=== PATIENT | female | born 1990 | race Caucasian/White ===

== ENCOUNTER → 2018-01-25 | Outpatient (CLI) | payer BC ==
[~2018-01-25] MED LIST: CETI10CA8 PO; FEXO1TAB63 PO; LEVO125T77 PO; LEVO150T72 PO; MONT10TA PO; PREN-127 PO
[2018-01-25 12:20] LABS: PLATELET COUNT, AUTOMATED 271 K/uL (150-450)
== END ==
LOC: LAB 10:55
PROVIDERS: ATTEND Obstetrics & Gynecology
DX: Z34.91 Encounter for supervision of normal pregnancy, unspecified, first trimester (principal); E03.9 Hypothyroidism, unspecified
CPT/HCPCS: 36415; 81001; 84443; 85025; 86592; 86703; 86762; 86850; 86900; 86901; 87088; 87340

== ENCOUNTER → 2018-03-05 | Outpatient (CLI) | payer OTHER | LOC: LAB 11:51 | PROVIDERS: ATTEND Obstetrics & Gynecology | DX: E03.9 Hypothyroidism, unspecified (principal) | CPT/HCPCS: 36415; 84443 ==

== ENCOUNTER → 2018-04-27 | Outpatient (CLI) | payer OTHER | LOC: LAB 07:58 | PROVIDERS: ATTEND Obstetrics & Gynecology | DX: O99.282 Endocrine, nutritional and metabolic diseases complicating pregnancy, second trimester (principal); E03.9 Hypothyroidism, unspecified; Z34.02 Encounter for supervision of normal first pregnancy, second trimester | CPT/HCPCS: 36415; 81511; 84443 ==

== ENCOUNTER → 2018-05-06 | Outpatient (CLI) | payer OTHER ==
--- NOTE | 2018-05-06 14:22 | RADIOLOGY IMAGING REPORT ---
[place] [facility] [place] Melodie Gavin : 1990 MR: [id number] V: [id number] EXAM DATE: ORDERING PHYSICIAN: LUZ BUCKLEY TECHNOLOGIST: Location: [facility] Patient: Melodie Gavin : 1990 Visit/Account:[id number] Date of Sevice: 05/06/2018 OB Ultrasound > 14 weeks with anatomic evaluation HISTORY: Anatomic survey COMPARISON STUDIES: None available FINDINGS: 3-D imaging was performed by the technologist according to protocols developed by the radiologists an d the facility radiology staff. Refractory Technician images are stored on PACS. Intrauterine gestations: one presentation: Variable heart rate: 142 bpm Amniotic fluid index: 16.0 cm Largest amniotic fluid pocket 5.1 cm Placenta: Anterior without previa Uterus: gravid, otherwise normal Maternal adnexa: Unremarkable Cervix: long and closed Gestational Parameters: BPD: 5.0 cm 21 weeks, 3 days, 84th percentile HC: 17.8 cm 20 weeks, 3 days, 36 percentile AC: 15.2 cm 20 weeks, 3 days, 43rd percentile FL: 3.5 cm 21 weeks, 1 day, 64th percentile Average ultrasound age (AUA): 20 weeks, 6 days PEDRO: 09/17/2018 based on AUA Estimated weight (EFW): 371 g Anatomic Survey: Intracranial structures, 4-chamber heart, stomach, kidneys, urinary bladder, spine, 3-vessel cord and cord insertion are unremarkable. Two upper and two lower extremities visualized. IMPRESSION: 1. Single live intrauterine gestation; estimated ultrasound age 20 weeks, 6 days. 2. Unremarkable anatomic survey Report Dictated By: Tomas Chen DO at 05/06/2018 2:10 PM Report E-Signed By: Tomas Chen DO at 05/06/2018 2:18 PM WSN:[email or web address]
== END ==
LOC: US 11:04
PROVIDERS: ATTEND Obstetrics & Gynecology
DX: Z02.9 Encounter for administrative examinations, unspecified (principal)

== ENCOUNTER → 2018-06-24 | Outpatient (CLI) | payer OTHER ==
[~2018-06-24] MED LIST changes: +DIPH0.5D12 IM
== END ==
LOC: LAB 07:49
PROVIDERS: ATTEND Obstetrics & Gynecology
DX: O99.282 Endocrine, nutritional and metabolic diseases complicating pregnancy, second trimester (principal); E03.9 Hypothyroidism, unspecified
CPT/HCPCS: 36415; 82950; 84443; 85027

== ENCOUNTER → 2018-08-23 | Outpatient (CLI) | payer OTHER ==
[~2018-08-23] MED LIST changes: -DIPH0.5D12 IM; +DIPH0.5S2 IM
--- NOTE | 2018-08-23 14:21 | RADIOLOGY IMAGING REPORT ---
FACILITY: [facility] [place] PATIENT NAME: Melodie Gavin : 1990 MR: [id number] V: [id number] EXAM DATE: ORDERING PHYSICIAN: LUZ BUCKLEY TECHNOLOGIST: Location: [facility] [place] Patient: Melodie Gavin : 1990 Visit/Account:[id number] Date of Sevice: 08/23/2018 EXAMINATION: Ultrasound transabdominal OB > 14 weeks with anatomic evaluation HISTORY: Size greater than dates COMPARISON: May 06, 2018 TECHNIQUE: Transabdominal imaging was performed for assessment of the fetus and maternal pelvic structures. T ransvaginal imaging was not performed. FINDINGS: Placenta: Anterior without previa. Uterus: Gravid, otherwise normal Cervix: Not evaluated Maternal Ovaries: Not visualized. Maternal and other adnexa findings: Not evaluated Intrauterine gestations: One. presentation: Cephalic heart rate: Normal at 126 bpm Amniotic fluid index: 12.94 cm Largest amniotic fluid pocket: 4.49 cm Gestational Parameters: BPD: 9.08 cm 36 weeks/ six days, 80% HC: 32.58 cm 37 weeks/ zero days, 42% AC: 32.74 cm 36 weeks/ five days, 77% FL: 7.3 cm 37 weeks/ three days, 79% Average ultrasound age (AUA): 37 weeks/zero days, PEDRO 09/13/2018 Estimated gestational age by PEDRO: 36 weeks/zero days, PEDRO 09/20/2018 Estimated weight (EFW): 3057 g grams +/- 446 grams EFW for PEDRO: 75 percentile Anatomic Survey: Anatomic survey not performed IMPRESSION: Single viable fetus in cephalic presentation with an estimated gestational age by measur ements of 37 weeks and zero days. Estimated gestational age by LMP is 36 weeks and zero days. Estimated weight is 3057 g equivalent to the 75th percentile Report Dictated By: Jayde Valladares MD at 08/23/2018 1:00 PM Report E-Signed By: Jayde Valladares MD at 08/23/2018 2:16 PM WSN:[email or web address]
== END ==
LOC: RAD 11:26
PROVIDERS: ATTEND Obstetrics & Gynecology
DX: Z02.9 Encounter for administrative examinations, unspecified (principal)

== ENCOUNTER → 2018-08-24 | Outpatient (CLI) | payer OTHER | LOC: LAB 11:38 | PROVIDERS: ATTEND Obstetrics & Gynecology | DX: Z36.85 Encounter for antenatal screening for Streptococcus B (principal) | CPT/HCPCS: 87081 ==

== ENCOUNTER 2018-09-15 05:33 | Inpatient (IN) | payer OTHER ==
[2018-09-15] MEDS ORDERED: OXYTOCIN 30 UNIT/NS 500 ML 500 ML IV PRN ×2 (05:37→09:06)
[2018-09-15] MEDS ORDERED: FAMOTIDINE(*) 20MG/50ML PREMIX 50 ML IVPB PRN (05:37)
[2018-09-15] MEDS ORDERED: METOCLOPRAMIDE 10 MG/2 ML SDV IVP PRN (05:40)
[2018-09-15] MEDS ORDERED: LIDOCAINE/SOD BICARB 8.4% SYR SC PRN (05:40)
[2018-09-15] MEDS ORDERED: fentaNYL CITR 100 MCG/2 ML AMP IVP PRN (05:40)
[2018-09-15] MEDS ORDERED: FLUSH 10 ML SYR IVP PRN (05:40)
[2018-09-15] MEDS ORDERED: LIDOCAINE 1% LOCAL 300 MG/30ML INJ PRN (05:40)
[2018-09-15 06:15] VITALS: BP 118/68
[2018-09-15 06:58] LABS: PLATELET COUNT, AUTOMATED 184 K/uL (150-450)
[2018-09-15] MEDS: LR(*) 1000 ML BAG 1,000 ML IV PRN ×3 (07:08→15:09)
--- NOTE | 2018-09-15 08:35 | History & Physical ---
History of Present Illness Age of Patient: 28 : 1 Para or TPAL: 0 EDC per LMP: Sep 22, 2018 Estimated Gestational Age: 39 History of Present Illness Pt here for elective IOL. History Patient's Blood Type: A Positive Rubella Status: Immune Group B Strep Screen: Negative Allergies: Coded Allergies: grass pollen (Verified Allergy, Unknown, 01/25/18) mold (Verified Allergy, Unknown, 01/25/18) tree and shrub pollen (Verified Allergy, Unknown, 01/25/18) Family History: FH: diabetes mellitus paternal grandmother FH: lupus paternal grandmother Med Rec Home Meds Active Scripts Levothyroxine Sodium (SYNTHROID) 150 Mcg Tablet, 150 MCG PO QDAY, #30 TAB 6 Refills Prov:LUZ BUCKLEY MD 05/27/18 Reported Medications Cetirizine Hcl (ZYRTEC) 10 Mg Capsule, 10 MG PO DIRECTED PRN for allergy shot, CAPSULE 01/25/18 Fexofenadine Hcl/Pseudoephedr (CARLENE-D 24 HOUR TABLET) 1 Each Tabsr, 1 TAB PO DIRECTED PRN for allergy shots 01/25/18 Montelukast Sodium (SINGULAIR) 10 Mg Tablet, 1 TAB PO DAILY, TAB 01/25/18 Vits W-Ca,Fe,Fa(<1MG) ( VITAMINS) 1 Each Tablet, 1 EACH PO DAILY, TAB 01/25/18 Exam General Exam Vital Signs Vital Signs Date Time Temp Pulse Resp B/P (MAP) Pulse Ox O2 Delivery O2 Flow Rate FiO2 09/15/18 06:15 98.5 67 18 118/68 (85) 98 Room Air General Apperance: Alert/Awake/No Acute Distress Neuro: No Gross deficits Eyes: Normal Extraocular Movement & Vison ENT: Normal Respiratory: No Respiratory Distress Extremities: No Cyanosis,Clubbing or Edema Psychological: Alert & Oriented X3, Appropriate Mood & Affect Vaginal Discharge/Fluid?: Clear Fluid, Moderate Amount, Other (AROM peformed at [address] 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
[2018-09-15] MEDS ORDERED: LIDO/EPI 2% MPF 1:200,000 20ML EPI PRN (09:05)
[2018-09-15] MEDS ORDERED: BUPIVACAINE 0.25% MPF INJ EPI PRN (09:05)
[2018-09-15] MEDS ORDERED: FENTANYL/ROPIVACAINE 100 ML BAG EPI PRN (09:05)
[2018-09-15] MEDS ORDERED: BUPIVACAINE 0.5% INJ 30ML VIAL EPI PRN (09:05)
[2018-09-15] MEDS ORDERED: LIDOCAINE/PF 2% 200MG/10ML AMP 200 MG/10 ML AMPUL EPI PRN (09:05)
[2018-09-15] MEDS ORDERED: fentaNYL CITR 100 MCG/2 ML AMP IT PRN (09:05)
--- NOTE | 2018-09-15 13:45 | Anesthesia OB Pre-Anes Eval ---
History of Present Illness Anesthesia Start Date: Sep 15, 2018 Anesthesia Start Time: 12:51 OB Anesthesia Diagnosis: induction - elective EDC: Sep 22, 2018 : 1 Para: 1 Vital Signs: Vital Signs Date Time Temp Pulse Resp B/P (MAP) Pulse Ox O2 Delivery O2 Flow Rate FiO2 09/15/18 06:15 98.5 67 18 118/68 (85) 98 Room Air Pain Ratin Result Diagram: 09/15/18 0628 Past Medical History Medical History: other (hypothyroidism) Surgical History: noncontributory Attended Childbirth Classes?: No Hx Anesthesia Reactions: No Hx Family Anesthesia Reaction: No Current Medications: pitocin Home Meds Active Scripts Levothyroxine Sodium (SYNTHROID) 150 Mcg Tablet, 150 MCG PO QDAY, #30 TAB 6 Ref ills Prov:LUZ BUCKLEY MD 05/27/18 Reported Medications Cetirizine Hcl (ZYRTEC) 10 Mg Capsule, 10 MG PO DIRECTED PRN for allergy shot, CAPSULE 01/25/18 Fexofenadine Hcl/Pseudoephedr (CARLENE-D 24 HOUR TABLET) 1 Each Tabsr, 1 TAB PO DIRECTED PRN for allergy shots 01/25/18 Montelukast Sodium (SINGULAIR) 10 Mg Tablet, 1 TAB PO DAILY, TAB 01/25/18 Vits W-Ca,Fe,Fa(<1MG) ( VITAMINS) 1 Each Tablet, 1 EACH PO DAILY, TAB 01/25/18 Allergies: Coded Allergies: grass pollen (Verified Allergy, Unknown, 01/25/18) mold (Verified Allergy, Unknown, 01/25/18) tree and shrub pollen (Verified Allergy, Unknown, 01/25/18) Anesthesia OB ROS Neurological: No migraines/headaches, No seizures, No neuropathy, No other ENT: Denies Tooth caps, Denies Loose teeth, Denies Chipped teeth, Denies Dentures, Denies Bridges, Denies Retainers, Denies Veneers, Denies Implants, Denies Tongue ring, Denies Other Pulmonary: No asthma, No smoker (pks/day/yrs), No other Airway Class: ll Cardiovascular ROS: No edema, No arrhythmia, No other GI ROS: clear liquids ROS: No Herpes, No STD(s), No Liver Disease, No Renal Disease, No Other Endocrine ROS: No diabetes, No gestational diabetes, No thyroid disorder, No other Musculoskeletal ROS: No low back pain, No low back injury, No scoliosis, No other ASA Classification: 2 Assessment and Plan Anesthesia Plan: IAN HOLGUIN CRNA Sep 15, 2018 13:45
--- NOTE | 2018-09-15 13:47 | Procedure Note ---
Anesthetic Placement Note Anesthesia Plan: LEB (dural puncture technique) Permit for Anesthesia Signed: Yes Anesthesia Technique: Patient Sitting Anesthesia Prep: Chlorhexidine Interspace: L 3-4 Local Anesthetic: 1% Lidocaine, 25 Gauge Needle Amount Local - cc's: 3 Anesthesia Needle: 17g Touhy/Schliff Anesthesia Attempts: 1 Loss of Resistance: Normal Saline Depth of ELISA (cm): 5 Epidural Needle Placement: No CSF, No Blood, No Parasthesia Intrathecal Needle: 27 Gauge Pencan Cerebral Spinal Fluid: Yes, Clear Catheter Insertion (cm): 5 Catheter Type: Araiza - Spring Wound Epidural Dressing: Tegaderm, Tape Anesthesia Tray: Lot Number ([id number]), Expiration Date (11/21/2019), Reference Number ([id number]) Anesthesia Medications: Epidural Test Dose: 1.5 Lido/Epi (1:200,000), Dose - mL (5 mL incrementally), Time (1308), Negative Epidural Loading Dose: 0.2% Ropivicaine, With Fentanyl 2mcg/ml, Dose - ml (6), Time (1316), Other (fentanyl bolus via epidural 100mcg at 1312) Epidural Infusion: 0.2% Ropivicaine, With Fentanyl 2mcg/ml, Start Time: (1316) Epidural Pump Setting: Bolus Dose - mL (5), Lockout - Minutes (20), Maintenance Rate - mL/hr (8), Maximum per Hour - mL (23) Complications: None IAN ALEX CRNA Sep 15, 2018 13:47
--- NOTE | 2018-09-15 14:02 | Labor Progress Note ---
Labor Subjective Progress Notes Subjective called to pts room to evaluate FHT strip Feeling Movement?: Yes Labor Pain: Comfortable Labor Objective Vital Signs Vital Signs Date Time Temp Pulse Resp B/P (MAP) Pulse Ox O2 Delivery O2 Flow Rate FiO2 09/15/18 06:15 98.5 67 18 118/68 (85) 98 Room Air Vaginal Discharge/Fluid?: Bloody Show Cervical Dialation: 6.5 Cervical Effacement (%): 90 Cervical Consistency: Moderate Cervical Position: Mid Station: -1 Presentation: Vertex Uterine Contraction Strength: Strong UC Resting Tone: Soft Fetus Heart Tone Variabilty: Moderate FHT Accelerations: Absent FHT Decelerations: Late (intermittent late decels present, pit at 18 mu ) FHT Category: II General Exam General Appearance: Alert/Awake/No Acute Distress Respiratory: No Respiratory Distress Abdomen: Gravid - Non-Tender Psychological: Alert & Oriented X3, Appropriate Mood & Affect Other Result Diagram: 09/15/18 0628 Assessment and Plan DONOR RECRUITMENT MANAGER Assessment: Other (RN instructed to decrease pitocin to 9 mu, will observe strip. If late decels persist will stop pitocin ) RAJENDRA MOLINA DO Sep 15, 2018 14:02
--- NOTE | 2018-09-15 14:22 | Anesthesia Progress Note ---
Progress/Maintenance Anesthesia Note Date: Sep 15, 2018 Anesthesia Note Time: 14:15 Pain Intensity: 0 Pump: On Pump Rate (ML/HR): 8 Motor Level: Bending Knees-Bilateral Assessment and Plan Anesthesia Plan: IAN HOLGUIN CRNA Sep 15, 2018 14:22
[2018-09-15] MEDS ORDERED: INFLUENZA VIRUS VAC 0.5ML SYR IM ONLY ONE (18:00)
[2018-09-15] MEDS ORDERED: HYDROCORTISONE 2.5% CR 30GM TB PR PRN (18:00)
[2018-09-15] MEDS ORDERED: MEASLES,MUMP,RUBELLA VAC 0.5ML SUBQ ONE (18:00)
[2018-09-15] MEDS ORDERED: MAGNESIUM HYDROXIDE* 30ML UDCP PO PRN (18:00)
[2018-09-15] MEDS ORDERED: ACETAMINOPHEN 325 MG TAB PO PRN (18:00)
[2018-09-15] MEDS ORDERED: GLYCERIN/WITCH HAZEL LEAF 1 PK TP PRN (18:00)
[2018-09-15] MEDS ORDERED: DIPHTH/TETANUS/ACEL. PERTUSSIS IM ONLY ONE (18:00)
[2018-09-15] MEDS ORDERED: LANOLIN OINT 7 GM TUBE TP PRN (18:00)
[2018-09-15] MEDS ORDERED: BENZOCAINE 20% 60 ML BTL TP PRN (18:00)
--- NOTE | 2018-09-15 18:04 | OB Delivery Note ---
Delivery Note Vaginal Delivery Type: Spont. Vaginal Delivery Delivery Date: Sep 15, 2018 Delivery Time: 17:00 Estimated Gestational Age(wks): 39 Delivery Anesthesia: Epidural Sex: Male [place] Apgars: 1 Minute (8), 5 Minute (9) Repair Needed: Episiotomy-Midline Notes: Pt pushed to deliver a viable male over a second degree midline episiotomy. Episiotomy performed due to anterior tearing at level of clitoris that was noted during pushing. Head and shoulders delivered spontaneous. vigorous at . 3VC clamped and cut after 30 second delay. Infant placed on mom's chest. Epis repaired in usual fashion with 3.0 rapide. Left sided labia minora lac noted and reapproximated with 3.0 rapide for hemostasis. Spontaneous delivery of intact placenta. EBL 250 cc. I was performed entire delivery and repair unassisted. RAJENDRA MOLINA DO Sep 15, 2018 18:04
--- NOTE | 2018-09-15 18:07 | Anesthesia Progress Note ---
Progress/Maintenance Anesthesia Note Date: Sep 15, 2018 Anesthesia Note Time: 17:45 Pump: Off Assessment and Plan Anesthesia Stop Day: Sep 15, 2018 Anesthesia Stop Time: 17:21 IAN ALEX CRNA Sep 15, 2018 18:07
[2018-09-15] MEDS ORDERED: IBUPROFEN 800 MG TAB PO SCH (18:30)
[2018-09-15] MEDS: DOCUSATE CALCIUM 240 MG CAP PO SCH (20:33)
[2018-09-15] MEDS: IBUPROFEN 800 MG TAB PO SCH (20:33)
[2018-09-15 23:15] VITALS: BP 111/54
[2018-09-16] MEDS: IBUPROFEN 800 MG TAB PO SCH ×2 (04:19→12:11)
[2018-09-16 04:20] VITALS: BP 100/53
[2018-09-16 07:30] VITALS: BP 149/68
--- NOTE | 2018-09-16 08:28 | OB/GYN Progress Note ---
OB Subjective Progress Notes Subjective Pt doing well, . Voiding well, lochia light, pain well controlled. No concerns. OB Objective Physical Exam Vital Signs Date Time Temp Pulse Resp B/P (MAP) Pulse Ox O2 Delivery O2 Flow Rate FiO2 09/16/18 04:20 98.3 74 20 100/53 (69) 95 Room Air Intake and Output 09/16/18 07:01 Intake Total 2000 ml Balance 2000 ml Intake IV Total 2000 ml # Voids 3 General Appearance: Alert/Awake/No Acute Distress Neurological: No Gross deficits Eyes: Normal Extraocular Movement & Vison Respiratory: No Respiratory Distress Abdomen: Fundus Firm (well below umbilicus) Extremities: No Cyanosis,Clubbing or Edema Psychological: Alert & Oriented X3, Appropriate Mood & Affect Result Diagram: 09/16/18 0602 Assessment and Plan CREATIVE WRITER Plan: Routine Post- Care (anticipate d/c to home tomorrow. Possibly this evening depending on baby. ) Problems: (1) (spontaneous vaginal delivery) (2) Hypothyroidism Status: Chronic Problem Qualifiers (1) Hypothyroidism: Hypothyroidism type: acquired Qualified Codes: E03.9 - Hypothyroidism, unspecified RAJENDRA MOLINA DO Sep 16, 2018 08:28
[2018-09-16] MEDS: DOCUSATE CALCIUM 240 MG CAP PO SCH (08:53)
[2018-09-16 11:15] VITALS: BP 118/68
[2018-09-16 14:50] VITALS: BP 133/65
--- NOTE | 2018-09-16 17:49 | Anesthesia Post Eval Note ---
Anesthesia Post Eval Note Vital Signs Date Time Temp Pulse Resp B/P (MAP) Pulse Ox O2 Delivery O2 Flow Rate FiO2 09/16/18 14:50 98.4 76 20 133/65 (87) 95 Room Air Pt able to participate in Eval: Yes Cardiovascular Status: Satisfactory Respiratory Status: Satisfactory Pain Managment: Satisfactory PO Nausea/Vomiting: Satisfactory Temperature Management: Satisfactory Mental Status: Satisfactory, Alert, Oriented X3 Post-Op Hydration Status: Satisfactory, Tolerating PO Well, Voiding w/o Difficulty Anesthesia Type: LEB Anesthesia Tolerance: no complications noted. IAN ALEX CRNA Sep 16, 2018 17:49
== END 2018-09-16 20:33 | disposition home or self-care (01) | DRG 807 ==
LOC: OB 05:33
PROVIDERS: ADMIT Obstetrics & Gynecology; ATTEND Obstetrics & Gynecology
PROC: 10E0XZZ Delivery of Products of Conception, External Approach (ICD-10-PCS; principal; 2018-09-15)
PROC: 0W8NXZZ Division of Female Perineum, External Approach (ICD-10-PCS; 2018-09-15)
PROC: 10907ZC Drainage of Amniotic Fluid, Therapeutic from Products of Conception, Via Natural or Artificial Opening (ICD-10-PCS; 2018-09-15)
PROC: 3E033VJ Introduction of Other Hormone into Peripheral Vein, Percutaneous Approach (ICD-10-PCS; 2018-09-15)
DX: O99.284 Endocrine, nutritional and metabolic diseases complicating childbirth (principal); Z37.0 Single live birth; Z3A.39 39 weeks gestation of pregnancy; E03.9 Hypothyroidism, unspecified
CPT/HCPCS: 36415; 85025; 85027; 86850; 86900; 86901; J2590; J3010; J7120

== ENCOUNTER → 2018-10-28 | Outpatient (CLI) | payer OTHER ==
[~2018-10-28] MED LIST changes: +LEVO75TA73 PO; +NORE0.3529 PO
== END ==
LOC: LAB 13:29
PROVIDERS: ATTEND Obstetrics & Gynecology
DX: E03.9 Hypothyroidism, unspecified (principal)
CPT/HCPCS: 36415; 84443